=== PATIENT | female | born 1970 | race Caucasian/White ===

== ENCOUNTER 2020-03-07 08:44 | Day surgery (SDC) | payer OTHER ==
[~2020-03-07] VITALS: Ht 171.4 cm; Wt 78.3 kg
[2020-03-07 09:21] VITALS: BP 126/87
[2020-03-07] MEDS ORDERED: LIDOCAINE 1%, 10ML ONE (09:27)
[2020-03-07] MEDS ORDERED: LIDOCAINE 1%, 20ML ONE (09:27)
[2020-03-07] MEDS ORDERED: SODIUM CHLORIDE 0.9% 1,000 ML IV SCH (09:30)
[2020-03-07] MEDS ORDERED: CEFAZOLIN PMX 1GM/50ML 50 ML IV ONE (09:30)
[2020-03-07] MEDS ORDERED: MIDAZOLAM 1 MG/ML, 5ML ONE ×2 (09:55)
[2020-03-07] MEDS ORDERED: FENTANYL PF 100 MCG/2ML ONE (09:55)
[2020-03-07] MEDS ORDERED: NALOXONE 1 MG/ML, 2ML ONE (09:56)
[2020-03-07] MEDS ORDERED: FLUMAZENIL 0.1 MG/1 ML, 5ML ONE (09:56)
== END 2020-03-07 12:20 | disposition home or self-care (01) ==
LOC: OUT 08:44
PROVIDERS: ATTEND Internal Medicine Hematology & Oncology
DX: C50.811 Malignant neoplasm of overlapping sites of right female breast (principal); Z17.1 Estrogen receptor negative status [ER-]; J43.9 Emphysema, unspecified; Z72.89 Other problems related to lifestyle; Z87.891 Personal history of nicotine dependence
CPT/HCPCS: 36561; 76937; 77001; 99156; 99157; C1769; C1894; J0690; J1642; J2250; J3010; J7030; J2310

== ENCOUNTER → 2020-08-19 | Outpatient (CLI) | payer OTHER | END | disposition home or self-care (01) | LOC: ROC 08:05 | PROVIDERS: ATTEND Radiology Radiation Oncology | DX: C50.411 Malignant neoplasm of upper-outer quadrant of right female breast (principal); Z17.1 Estrogen receptor negative status [ER-]; Z87.891 Personal history of nicotine dependence | CPT/HCPCS: 99214; G0463 ==

== ENCOUNTER 2020-12-11 12:14 | Outpatient (CLI) | payer OTHER | END 2020-12-11 23:59 | disposition home or self-care (01) | LOC: CFH 12:14 | PROVIDERS: ATTEND Internal Medicine Hematology & Oncology | DX: Z12.31 Encounter for screening mammogram for malignant neoplasm of breast (principal) | CPT/HCPCS: 77063; 77067 ==

== ENCOUNTER → 2020-12-17 | Outpatient (CLI) | payer OTHER | END | disposition home or self-care (01) | LOC: ROC 08:23 | PROVIDERS: ATTEND Radiology Radiation Oncology | DX: Z08 Encounter for follow-up examination after completed treatment for malignant neoplasm (principal); Z85.3 Personal history of malignant neoplasm of breast; Z17.1 Estrogen receptor negative status [ER-]; Z87.891 Personal history of nicotine dependence | CPT/HCPCS: 99213; G0463 ==